=== PATIENT | male | born 1965 | race Hispanic/Latino ===

== ENCOUNTER 2020-06-16 13:30 | Inpatient (IN) | payer MEDICARE, OTHER ==
[~2020-06-16] VITALS: Ht 170.2 cm; Wt 72.6 kg
[~2020-06-16 13:30] MED LIST: AMITRIPTYLINE H25 MG PO; CYCLOBENZAPRINE10 MG PO; DEXILANT30 MG PO; LEVEMIR100 UNIT/1 SQ; LINZESS PO; LOSARTAN POTASS50 MG PO; NEURONTIN300 MG; Nifedipine PO; TRANDATE100 MG PO; TYLENOL # 31 EA PO
[2020-06-16 14:17] LABS: BASOPHILS # (AUTO) 0.1 (0.0-0.1); BASOPHILS % 0.7 % (0.0-1.0); EOSINOPHILS # (AUTO) 0.1 (0.0-0.4); EOSINOPHILS % 1.5 % (0.0-6.0); HEMATOCRIT 33.7 % (38.2-49.6); HEMOGLOBIN 10.2 g/dL (14.0-18.0); LYMPHOCYTES # (AUTO) 0.8 (1.0-3.2); LYMPHOCYTES % 11.1 % (18.0-39.1); MEAN CORPUSCULAR HEMOGLOBIN 25.8 pg (28-32); MEAN CORPUSCULAR HGB CONC 30.3 g/dL (31-35); MEAN CORPUSCULAR VOLUME 85.3 fL (81-99); MONOCYTES # (AUTO) 0.5 (0.2-0.8); MONOCYTES % 7.2 % (4.4-11.3); NEUTROPHILS # (AUTO) 5.6 (2.1-6.9); NEUTROPHILS % 79.1 % (38.7-80.0); PLATELET COUNT 136 x10e3/uL (140-360); RED BLOOD COUNT 3.95 x10e6/uL (4.3-5.7); RED CELL DISTRIBUTION WIDTH 18.5 % (11.7-14.4)
[2020-06-16 14:44] LABS: ALBUMIN 3.5 g/dL (3.5-5.0); ALBUMIN/GLOBULIN RATIO 0.8 (0.8-2.0); ANION GAP 24.8 mmol/L (8-16); CREATININE, SERUM 12.75 mg/dL (0.72-1.25)
[2020-06-16 14:47] LABS: CALCIUM 6.6 mg/dL (8.4-10.2); POTASSIUM 6.8 mmol/L (3.5-5.1)
[2020-06-16] MEDS ORDERED: ASPIRIN 81 MG CHEW TAB PO ONE (15:00)
[2020-06-16] MEDS ORDERED: SODIUM BICARBONATE 8.4% INJ 50 ML SYR IV STA (15:16)
[2020-06-16] MEDS ORDERED: DEXTROSE 50% SYRINGE 50 ML IV STA (15:16)
[2020-06-16 15:18] LABS: CREATINE KINASE MB 4.3 ng/mL (0-5.0)
[2020-06-16] MEDS ORDERED: FUROSEMIDE INJ 10 MG/ML 4 ML VIAL IV ONE (15:30)
[2020-06-16] MEDS ORDERED: INSULIN REGULAR, HUMAN 100 UNIT/1 ML 3ML VIAL IV ONE (15:30)
[2020-06-16] MEDS ORDERED: CALCIUM GLUCONATE 10% INJ 4.65 MEQ in SODIUM CHLORIDE 0.9% 50ML 50 ML IV ONE (15:35)
[2020-06-16 17:15] VITALS: BP 150/87
[2020-06-16] MEDS ORDERED: HYDRALAZINE HCL50 MG PO (17:25)
[2020-06-16] MEDS ORDERED: METOPROLOL TART50 MG PO (17:25)
[2020-06-16 17:38] VITALS: BP 150/87
[2020-06-16] MEDS ORDERED: SODIUM CHLORIDE 0.9% 1000ML 2,000 ML ONE (17:40)
[2020-06-16 17:46] VITALS: BP 150/87
[2020-06-16] MEDS ORDERED: SODIUM BICARBO650 MG PO (17:53)
[2020-06-16] MEDS ORDERED: CRESTOR10 MG PO (17:53)
[2020-06-16 20:00] VITALS: BP 189/101
[2020-06-16] MEDS ORDERED: HEPARIN SOD (PORCINE) 1000 UNIT/ML SDV IV ONE (20:45)
[2020-06-16] MEDS ORDERED: BRILINTA90 MG PO (21:20)
[2020-06-16] MEDS ORDERED: LOSARTAN POTASS25 MG PO (21:20)
[2020-06-16] MEDS ORDERED: ASPIRIN81 MG PO (21:20)
[2020-06-16] MEDS ORDERED: MULTI-VITAMIN1 EACH PO (21:20)
[2020-06-16] MEDS ORDERED: FERROUS SULFAT325 MG PO (21:20)
[2020-06-16] MEDS ORDERED: CALCIUM CITRAT1 EAC3 PO (21:20)
[2020-06-16] MEDS ORDERED: MULTIVITAMIN1 EACH (21:20)
[2020-06-16] MEDS ORDERED: LASIX80 MG PO (21:20)
[2020-06-16] MEDS: HYDRALAZINE HCL 20 MG/ML VIAL IV PRN (21:30)
[2020-06-16] MEDS ORDERED: ACETAMINOPHEN/CODEINE 300MG - 30MG TAB PO PRN (21:30)
[2020-06-16] MEDS: METOPROLOL TARTRATE 50 MG TAB PO SCH (21:45)
[2020-06-16] MEDS: VANCOMYCIN 1GM/NS 250 ML 250 ML IV SCH (23:00)
[2020-06-16] MEDS ORDERED: SODIUM CHLORIDE 0.9% 250ML 250 ML ONE (23:36)
[2020-06-16 23:52] VITALS: BP 189/101
[2020-06-17] VITALS (7 sets, daily range): BP systolic 160–189; BP diastolic 75–92
[2020-06-17 00:43] LABS: CREATINE KINASE MB 3.2 ng/mL (0-5.0)
[2020-06-17 06:07] LABS: BASOPHILS % 0.5 % (0.0-1.0); EOSINOPHILS # (AUTO) 0.2 (0.0-0.4); EOSINOPHILS % 2.5 % (0.0-6.0); HEMATOCRIT 32.3 % (38.2-49.6); HEMOGLOBIN 10.2 g/dL (14.0-18.0); MEAN CORPUSCULAR HEMOGLOBIN 25.9 pg (28-32); MEAN CORPUSCULAR HGB CONC 31.6 g/dL (31-35); MONOCYTES # (AUTO) 0.7 (0.2-0.8); NEUTROPHILS # (AUTO) 4.5 (2.1-6.9); NEUTROPHILS % 69.7 % (38.7-80.0); PLATELET COUNT 111 x10e3/uL (140-360); RED BLOOD COUNT 3.94 x10e6/uL (4.3-5.7)
[2020-06-17 06:30] LABS: ALBUMIN 3.2 g/dL (3.5-5.0); ALBUMIN/GLOBULIN RATIO 0.8 (0.8-2.0); ANION GAP 18.2 mmol/L (8-16); CALCIUM 7.1 mg/dL (8.4-10.2); CREATININE, SERUM 7.88 mg/dL (0.72-1.25); POTASSIUM 4.2 mmol/L (3.5-5.1)
[2020-06-17 06:54] LABS: CREATINE KINASE MB 2.7 ng/mL (0-5.0)
[2020-06-17] MEDS: TICAGRELOR 90 MG TABLET PO SCH (07:57)
[2020-06-17] MEDS ORDERED: SODIUM CHLORIDE 0.9% 1000ML 2,000 ML ONE (08:29)
[2020-06-17] MEDS ORDERED: FUROSEMIDE 40 MG TAB PO SCH (09:00)
[2020-06-17] MEDS ORDERED: ONDANSETRON HCL INJ 2MG/ML 2ML 2 MG/ML VIAL IV PRN (09:30)
[2020-06-17] MEDS ORDERED: SODIUM CHLORIDE 0.9% 250ML 500 ML IV PRN (11:45)
[2020-06-17] MEDS ORDERED: HEPARIN SOD (PORCINE) 1000 UNIT/ML SDV IV PRN (11:45)
[2020-06-17] MEDS ORDERED: SODIUM CHLORIDE 0.9% 1000ML 2,000 ML IV PRN (11:45)
[2020-06-17] MEDS: HYDRALAZINE HCL 25 MG TAB PO SCH ×3 (13:03→22:18)
[2020-06-17] MEDS: LOSARTAN POTASSIUM 25 MG TAB PO SCH ×2 (13:04→18:20)
[2020-06-17] MEDS: FERROUS SULFATE 325 MG TAB PO SCH (13:04)
[2020-06-17] MEDS: ASPIRIN 81 MG CHEW TAB PO SCH (13:04)
[2020-06-17] MEDS: OYST-CAL-D 500MG TABLET PO SCH ×2 (13:05→18:20)
[2020-06-17] MEDS: MULTIVITAMINS/MINERALS TAB PO SCH (13:05)
[2020-06-17] MEDS: METOPROLOL TARTRATE 50 MG TAB PO SCH ×2 (13:05→18:20)
[2020-06-17] MEDS: SODIUM BICARBONATE 650 MG TAB PO SCH ×2 (13:05→18:20)
[2020-06-18] VITALS (7 sets, daily range): BP systolic 147–187; BP diastolic 80–103
[2020-06-18] MEDS: ASPIRIN 81 MG CHEW TAB PO SCH (09:22)
[2020-06-18] MEDS: MULTIVITAMINS/MINERALS TAB PO SCH (09:22)
[2020-06-18] MEDS: TICAGRELOR 90 MG TABLET PO SCH (09:22)
[2020-06-18] MEDS: SODIUM BICARBONATE 650 MG TAB PO SCH ×2 (09:22→17:21)
[2020-06-18] MEDS: OYST-CAL-D 500MG TABLET PO SCH ×2 (09:22→17:21)
[2020-06-18] MEDS: LOSARTAN POTASSIUM 25 MG TAB PO SCH ×2 (09:22→17:20)
[2020-06-18] MEDS: METOPROLOL TARTRATE 50 MG TAB PO SCH ×2 (09:22→17:21)
[2020-06-18] MEDS: FERROUS SULFATE 325 MG TAB PO SCH (09:22)
[2020-06-18] MEDS: HYDRALAZINE HCL 20 MG/ML VIAL IV PRN (11:55)
[2020-06-18] MEDS: HYDRALAZINE HCL 100 MG TABLET PO SCH ×2 (14:43→21:03)
[2020-06-18] MEDS: VANCOMYCIN 1GM/NS 250 ML 250 ML IV SCH (21:03)
[2020-06-18] MEDS ORDERED: LACTULOSE SYRUP 20 GM/30 ML UDC PO PRN (22:15)
[2020-06-19] VITALS (9 sets, daily range): BP systolic 130–178; BP diastolic 74–96
[2020-06-19 06:36] LABS: ALBUMIN 3.1 g/dL (3.5-5.0); ALBUMIN/GLOBULIN RATIO 0.9 (0.8-2.0); ANION GAP 14.3 mmol/L (8-16); CREATININE, SERUM 6.81 mg/dL (0.72-1.25); POTASSIUM 5.3 mmol/L (3.5-5.1)
[2020-06-19 06:38] LABS: CALCIUM 6.8 mg/dL (8.4-10.2)
[2020-06-19] MEDS: SODIUM BICARBONATE 650 MG TAB PO SCH ×2 (09:00→17:15)
[2020-06-19] MEDS: OYST-CAL-D 500MG TABLET PO SCH ×3 (09:00→17:15)
[2020-06-19] MEDS: HYDRALAZINE HCL 100 MG TABLET PO SCH ×2 (11:00→15:20)
[2020-06-19] MEDS: TICAGRELOR 90 MG TABLET PO SCH (12:42)
[2020-06-19] MEDS: ASPIRIN 81 MG CHEW TAB PO SCH (12:42)
[2020-06-19] MEDS: MULTIVITAMINS/MINERALS TAB PO SCH (12:42)
[2020-06-19] MEDS: FERROUS SULFATE 325 MG TAB PO SCH (12:42)
[2020-06-19] MEDS: LOSARTAN POTASSIUM 25 MG TAB PO SCH ×2 (12:42→17:15)
[2020-06-19] MEDS: METOPROLOL TARTRATE 50 MG TAB PO SCH ×2 (12:42→17:15)
[2020-06-19] MEDS ORDERED: ONDANSETRON HCL 4 MG ORAL DISINTEGRATING TAB PO PRN (16:30)
[2020-06-19] MEDS: HYDRALAZINE HCL 20 MG/ML VIAL IV PRN (18:25)
[2020-06-19] MEDS ORDERED: LABETALOL HCL 5 MG/ML 20ML VIAL IV ONE (18:40)
== END 2020-06-19 21:10 | disposition home or self-care (01) | DRG 291 ==
LOC: ER 13:52 → ERHOLD 14:52 → MED/SURG3 17:14
PROVIDERS: ADMIT Internal Medicine; ATTEND Internal Medicine
PROC: 5A1D70Z Performance of Urinary Filtration, Intermittent, Less than 6 Hours Per Day (ICD-10-PCS; principal; 2020-06-19)
DX: I13.2 Hypertensive heart and chronic kidney disease with heart failure and with stage 5 chronic kidney disease, or end stage renal disease (principal); N18.6 End stage renal disease; I50.33 Acute on chronic diastolic (congestive) heart failure; L97.429 Non-pressure chronic ulcer of left heel and midfoot with unspecified severity; E87.5 Hyperkalemia; E83.51 Hypocalcemia; E11.22 Type 2 diabetes mellitus with diabetic chronic kidney disease; D64.9 Anemia, unspecified; Z99.2 Dependence on renal dialysis; Z91.15 Patient's noncompliance with renal dialysis; Z79.899 Other long term (current) drug therapy; R60.0 Localized edema; E11.621 Type 2 diabetes mellitus with foot ulcer; Z20.822 Contact with and (suspected) exposure to COVID-19; I25.10 Atherosclerotic heart disease of native coronary artery without angina pectoris; I16.0 Hypertensive urgency
CPT/HCPCS: 36415; 71045; 80053; 80061; 82550; 82553; 82948; 83036; 83880; 84484; 85025; 86704; 86706; 87340; 90962; 93005; 93306; 99284; J0360; J0610; J1644; J1817; J1940; J2405; J3370; J7030; J7050; J7799; U0002